=== PATIENT | female | born 1965 | race Caucasian/White ===

== ENCOUNTER 2024-06-22 12:55 | Outpatient (CLI) | payer MEDICAID ==
[2024-06-22 18:02] LABS: BASOPHILS % (AUTO) 0.5 %; EOSINOPHILS % (AUTO) 0.4 %; HCT - HEMATOCRIT 41.1 % (37.0-47.0); HGB - HEMOGLOBIN 13.1 g/dL (12.0-16.0); LYMPHOCYTES # (AUTO) 2.8 10^3/uL (1.5-3.5); MEAN CORPUSCULAR HEMOGLOBIN 29.2 pg (27.0-31.0); MEAN CORPUSCULAR HGB CONC 31.9 g/dL (32.0-36.0); MEAN CORPUSCULAR VOLUME 91.7 fL (81.0-99.0); MEAN PLATELET VOLUME 9.2 fL (7.9-10.8); MONOCYTES # (AUTO) 0.8 10^3/uL (0.0-1.0); MONOCYTES % (AUTO) 9.6 %; NEUTROPHILS # (AUTO) 4.2 10^3/uL (1.5-6.6); NEUTROPHILS % (AUTO) 53.2 %; PLT - PLATELET COUNT 433 10^3/uL (130-450); RED BLOOD COUNT 4.48 10^6/uL (4.20-5.40); WHITE BLOOD COUNT 7.9 x10^3/uL (4.8-10.8)
[2024-06-22 18:10] LABS: ALBUMIN 4.2 g/dL (3.2-5.5); ALBUMIN/GLOBULIN RATIO 1.6 (1.0-2.2); ALKALINE PHOSPHATASE 79 IU/L (42-121); ALT ALANINE AMINOTRANSFERASE 31 IU/L (10-60); AST ASPARTATE AMINOTRANSFERASE 33 IU/L (10-42); BILIRUBIN,TOTAL 0.3 mg/dL (0.2-1.0); BUN - BLOOD UREA NITROGEN 12 mg/dL (6-20); CALCIUM 9.5 mg/dL (8.5-10.3); CARBON DIOXIDE - CO2 29 mmol/L (21-32); CHLORIDE 104 mmol/L (101-111); CHOL/HDL RATIO 3.5 (<4.4); CHOLESTEROL 145 mg/dL; CREATININE 0.7 mg/dL (0.6-1.3); GFR - MDRD 86 (>89); GLUCOSE 95 mg/dL (74-104); HDL CHOLESTEROL 42 mg/dL; LDL CHOLESTEROL,CALCULATED 73 mg/dL; LDL/HDL RATIO 1.7 (<4.4); POTASSIUM 3.3 mmol/L (3.5-4.5); SODIUM 139 mmol/L (135-145); TOTAL PROTEIN 6.9 g/dL (6.4-8.9); TRIGLYCERIDES 151 mg/dL; VLDL CHOLESTEROL 30 mg/dL
[2024-06-22 18:19] LABS: THYROID STIMULATING HORMONE < 0.01 uIU/mL (0.34-5.60)
[2024-06-22 20:32] LABS: ESTIMATED AVERAGE GLUCOSE 108 mg/dL (70-100); HEMOGLOBIN A1c% 5.4 % (4.27-6.07)
== END 2024-06-22 12:56 | disposition home or self-care (01) ==
LOC: LAB.N 12:55
DX: E03.9 Hypothyroidism, unspecified (principal); E78.5 Hyperlipidemia, unspecified
CPT/HCPCS: 36415; 80053; 80061; 83036; 83721; 84439; 84443; 85025